=== PATIENT | male | born 1980 | race Hispanic/Latino ===

== ENCOUNTER 2020-01-10 19:32 | Emergency (ER) | payer SELFPAY ==
[2020-01-10] MEDS ORDERED: cefTRIAXone\\ROCEPHIN 250 MG VIAL ONE (20:01)
[2020-01-10] MEDS ORDERED: Azithromycin 250 MG TAB ONE ×2 (20:01→20:03)
[2020-01-10] MEDS ORDERED: Lidocaine 1% PF 5 ML VIAL ONE (20:02)
[2020-01-10 20:21] LABS: #Eosinphils 0.2 thou/uL (0.0-0.7); #Lymphocytes 1.8 thou/uL (1.20-3.40); #Monocytes 0.7 thou/uL (0.11-0.59); #Neutrophils 3.6 thou/uL (1.40-6.50); %Basophils 0.1 % (0.0-1.0); %Eosinophils 2.6 % (0.0-10.0); %Lymphocytes 28.9 % (21.0-51.0); %Monocytes 11.1 % (0.0-10.0); %Neutrophils 57.2 % (42.0-75.0); Hemoglobin 16.4 g/dL (14.0-18.0); Mean Corpuscular HGB CONC 34.1 g/dL (32.0-36.0); Mean Corpuscular Hemoglobin 31.6 pg (27.0-31.0); Mean Corpuscular Volume 92.7 fL (78.0-98.0); Mean Platelet Volume 8.8 fL (7.4-10.4); Platelet Count 180 thou/uL (130-400); RBC Distribution Width 12.5 % (11.5-14.5); Red Blood Cell (RBC) Count 5.18 mill/uL (4.70-6.10); White Blood Cell (WBC) Count 6.2 thou/uL (4.8-10.8)
[2020-01-10 20:41] LABS: ALT (SGPT) 34 U/L (8-55); AST (SGOT) 26 U/L (5-34); Alkaline Phosphatase 68 U/L (40-110); Anion Gap 15 mmol/L (10-20); BUN (Urea Nitrogen) 23 mg/dL (8.9-20.6); Bilirubin, Total 0.4 mg/dL (0.2-1.2); Calc. Creatinine Clearance 0 mL/min (70-130); Calcium 8.9 mg/dL (7.8-10.44); Carbon Dioxide 21 mmol/L (22-29); Chloride 106 mmol/L (98-107); Estimated GFR-MDRD 63; Globulin 4.1 g/dL (2.4-3.5); Glucose 159 mg/dL (70-105); Protein, Total 8.1 g/dL (6.0-8.3); Sodium 138 mmol/L (136-145)
[2020-01-10 20:58] LABS: Bilirubin Negative (Negative); Blood, Urine 3+ (Negative); Clarity Turbid (Clear); Glucose, Urine (Dipstick) 150 mg/dL (Negative); Leukocyte 500 Leu/uL (Negative); Nitrite Negative (Negative); Protein, Urine (Dipstick) 30 mg/dL (Neg-Trace); RBC/HPF Greater than 50 HPF (0-3); Squamous Epithelial None Seen HPF (0-3); Urobilinogen Normal mg/dL (Less than 2); WBC/HPF Greater than 50 HPF (0-3)
[2020-01-10 21:06] LABS: Bacteria/HPF 2+ HPF (None Seen)
[2020-01-12 18:57] LABS: Chlam.trachomatis by PCR,Urine DETECTED (NotDetected)
== END 2020-01-10 21:40 | disposition home or self-care (01) ==
LOC: ERS 19:32
DX: R36.9 Urethral discharge, unspecified (principal); N39.0 Urinary tract infection, site not specified; E11.9 Type 2 diabetes mellitus without complications; I10 Essential (primary) hypertension; Z21 Asymptomatic human immunodeficiency virus [HIV] infection status; F20.9 Schizophrenia, unspecified; F17.210 Nicotine dependence, cigarettes, uncomplicated; K62.5 Hemorrhage of anus and rectum; Z79.84 Long term (current) use of oral hypoglycemic drugs
CPT/HCPCS: 36415; 80053; 81003; 81015; 85025; 87491; 87591; 96372; 99283; J0696; J2001

== ENCOUNTER 2021-02-15 09:11 | Outpatient (CLI) | payer OTHER, SELFPAY | END 2021-02-15 09:12 | disposition home or self-care (01) | LOC: BICRAD 09:11 | PROVIDERS: ATTEND Nurse Practitioner Family | DX: R06.02 Shortness of breath (principal) | CPT/HCPCS: 71046 ==

== ENCOUNTER 2021-07-06 11:06 | Emergency (ER) | payer SELFPAY | END 2021-07-06 12:15 | disposition home or self-care (01) | LOC: ERS 11:06 | DX: D49.2 Neoplasm of unspecified behavior of bone, soft tissue, and skin (principal); E11.9 Type 2 diabetes mellitus without complications; I10 Essential (primary) hypertension; Z21 Asymptomatic human immunodeficiency virus [HIV] infection status; F17.210 Nicotine dependence, cigarettes, uncomplicated; Z79.899 Other long term (current) drug therapy | CPT/HCPCS: 99282 ==

== ENCOUNTER 2022-06-29 08:48 | Inpatient (IN) | payer BC, SELFPAY ==
[~2022-06-29 08:48] MED LIST: Iopamidol-370 76% 500 ML 1 ML ONE
[2022-06-29] MEDS ORDERED: Nitroglycerin 0.4 MG TAB 1 EACH ONE ×2 (09:15→09:17)
[2022-06-29] MEDS ORDERED: Nitroglycerin 2% Ointment 1 INCH/1 GM Packet ONE (09:15)
[2022-06-29] MEDS ORDERED: Aspirin Chewable 81 MG TAB ONE (09:15)
[2022-06-29 09:24] LABS: #Basophils 0.1 thou/uL (0.0-0.2); #Eosinphils 0.2 thou/uL (0.0-0.7); #Lymphocytes 2.2 thou/uL (1.20-3.40); #Monocytes 0.7 thou/uL (0.11-0.59); #Neutrophils 4.2 thou/uL (1.40-6.50); %Basophils 0.8 % (0.0-1.0); %Eosinophils 2.6 % (0.0-10.0); %Lymphocytes 29.9 % (21.0-51.0); %Monocytes 9.1 % (0.0-10.0); %Neutrophils 57.6 % (42.0-75.0); Hemoglobin 17.7 g/dL (14.0-18.0); Mean Corpuscular HGB CONC 34.8 g/dL (32.0-36.0); Mean Platelet Volume 9.8 fL (7.4-10.4); Platelet Count 154 thou/uL (130-400); RBC Distribution Width 11.6 % (11.5-14.5); Red Blood Cell (RBC) Count 5.53 mill/uL (4.70-6.10); White Blood Cell (WBC) Count 7.3 thou/uL (4.8-10.8)
[2022-06-29] MEDS ORDERED: Ondansetron PF 4 MG/2 ML Vial ONE (09:31)
[2022-06-29 09:46] LABS: ALT (SGPT) 51 U/L (8-55); AST (SGOT) 34 U/L (5-34); Alkaline Phosphatase 70 U/L (40-110); Anion Gap 15 mmol/L (10-20); BUN (Urea Nitrogen) 18 mg/dL (8.9-20.6); Bilirubin, Total 0.8 mg/dL (0.2-1.2); Calc. Creatinine Clearance 0 mL/min (70-130); Calcium 9.1 mg/dL (7.8-10.44); Carbon Dioxide 22 mmol/L (22-29); Chloride 102 mmol/L (98-107); Estimated GFR 75; Globulin 3.8 g/dL (2.4-3.5); Glucose 374 mg/dL (70-105); Lipase 111 U/L (8-78); Potassium 4.2 mmol/L (3.5-5.1); Protein, Total 7.8 g/dL (6.0-8.3); Sodium 135 mmol/L (136-145)
[2022-06-29 10:14] LABS: CKMB 8.3 ng/mL (0-6.6)
[2022-06-29] MEDS ORDERED: Acetaminophen 650 MG Suppository PR PRN (11:04)
[2022-06-29] MEDS ORDERED: Dextrose 5% in Water 1,000 ML IV PRN (11:28)
[2022-06-29] MEDS ORDERED: Dextrose 50% Abboject 50 ML SYRINGE SLOW IVP PRN (11:28)
[2022-06-29 12:36] LABS: Troponin I 0.316 ng/mL (< 0.028)
[2022-06-29 12:42] VITALS: BMI 34.7
[2022-06-29] MEDS: Acetaminophen 325 MG TAB PO PRN ×2 (12:52→20:25)
[2022-06-29] MEDS ORDERED: traMADol HCl 50 MG TAB PO SCH (14:15)
[2022-06-29] MEDS ORDERED: Ondansetron ODT 4 MG TAB PO PRN (15:30)
[2022-06-29] MEDS ORDERED: Ondansetron PF 4 MG/2 ML Vial IVP PRN (15:30)
[2022-06-29 16:16] LABS: Troponin I 2.768 ng/mL (< 0.028)
[2022-06-29] MEDS ORDERED: Enoxaparin Sodium 120 MG/0.8 ML SYRINGE SC SCH (16:45)
[2022-06-29] MEDS: Nitroglycerin 2% Ointment 1 INCH/1 GM Packet TOP SCH (17:11)
[2022-06-29] MEDS ORDERED: Ibuprofen 600 MG TAB PO SCH (19:45)
[2022-06-29] MEDS: Metoprolol Tartrate 25 MG TAB PO SCH (20:22)
[2022-06-29] MEDS: Insulin Regular 300 UNITS/3 ML VIAL SC PRN (20:58)
[2022-06-30] MEDS: Nitroglycerin 2% Ointment 1 INCH/1 GM Packet TOP SCH ×3 (02:02→17:21)
[2022-06-30 05:21] LABS: #Eosinphils 0.2 thou/uL (0.0-0.7); #Lymphocytes 1.6 thou/uL (1.20-3.40); #Monocytes 0.5 thou/uL (0.11-0.59); #Neutrophils 3.9 thou/uL (1.40-6.50); %Basophils 0.5 % (0.0-1.0); %Eosinophils 2.7 % (0.0-10.0); %Monocytes 8.4 % (0.0-10.0); %Neutrophils 62.3 % (42.0-75.0); Hemoglobin 16.1 g/dL (14.0-18.0); Mean Corpuscular HGB CONC 33.8 g/dL (32.0-36.0); Mean Corpuscular Hemoglobin 31.5 pg (27.0-31.0); Mean Corpuscular Volume 93.3 fl (78.0-98.0); Mean Platelet Volume 9.9 fL (7.4-10.4); Platelet Count 144 thou/uL (130-400); RBC Distribution Width 11.7 % (11.5-14.5); Red Blood Cell (RBC) Count 5.12 mill/uL (4.70-6.10); White Blood Cell (WBC) Count 6.3 thou/uL (4.8-10.8)
[2022-06-30 05:45] LABS: Anion Gap 13 mmol/L (10-20); BUN (Urea Nitrogen) 20 mg/dL (8.9-20.6); Calc. Creatinine Clearance 173 mL/min (70-130); Calcium 8.5 mg/dL (7.8-10.44); Carbon Dioxide 23 mmol/L (22-29); Cardiac Risk 6.2 (Less than 4.5); Chloride 102 mmol/L (98-107); Cholesterol 161 mg/dl (< 200 Desired); Estimated GFR 98; Glucose 249 mg/dL (70-105); HDL Cholesterol 26 mg/dL (>60 Neg Risk); Potassium 3.7 mmol/L (3.5-5.1); Sodium 134 mmol/L (136-145); Triglycerides 516 mg/dL (Less than 150)
[2022-06-30 06:58] LABS: Magnesium 1.7 mg/dL (1.6-2.6)
[2022-06-30] MEDS ORDERED: Verapamil 5 MG/2 ML VIAL ONE ×2 (08:12→08:14)
[2022-06-30] MEDS ORDERED: Heparin 10,000 UNITS/ 10 ML VIAL ONE (08:13)
[2022-06-30] MEDS ORDERED: Lidocaine 1% PF 5 ML VIAL ONE (08:13)
[2022-06-30] MEDS ORDERED: Nitroglycerin 100MG/250ML BOT 250 ML ONE (08:14)
[2022-06-30] MEDS ORDERED: Fentanyl 100 MCG/2 ML VIAL ONE ×2 (08:15→12:22)
[2022-06-30] MEDS ORDERED: Midazolam HCl 2 mg/2 ml Vial ONE ×2 (08:15→12:22)
[2022-06-30] MEDS ORDERED: Adenosine 6 MG/2 ML VIAL ONE (08:46)
[2022-06-30] MEDS ORDERED: Iopamidol 370 76% 100 ML VIAL ONE (08:47)
[2022-06-30] MEDS ORDERED: FLU VACC QS2022-23(6MOS UP)/PF 60 MCG/0.5 ML SYRINGE IM ONE (09:00)
[2022-06-30] MEDS ORDERED: Prevnar 13-Val Conj/PF 0.5 ML SYRINGE IM ONE (09:00)
[2022-06-30] MEDS ORDERED: Magnesium 2 GM/50 ML(in water) 2 GM in Premix Bag 1 BAG IVPB SCH (10:45)
[2022-06-30] MEDS: Aspirin 81 mg Enteric Coated Tablet PO SCH (11:06)
[2022-06-30] MEDS: glyBURIDE 5 MG TAB PO SCH (11:06)
[2022-06-30] MEDS: Enoxaparin Sodium 120 MG/0.8 ML SYRINGE SC SCH ×2 (11:06→21:35)
[2022-06-30] MEDS: Metoprolol Tartrate 25 MG TAB PO SCH ×2 (11:07→21:35)
[2022-06-30] MEDS ORDERED: Nitroglycerin 0.4 MG TAB (25 Tab Bottle) SL PRN (13:41)
[2022-06-30] MEDS ORDERED: Sodium Chloride 0.9% 200 ML IV PRN (13:41)
[2022-06-30] MEDS ORDERED: Acetaminophen/Codeine 30-300mg Tablet PO PRN ×2 (13:41)
[2022-06-30] MEDS ORDERED: Sodium Chloride 0.9% 1,000 ML IV SCH (13:45)
[2022-06-30] MEDS: Insulin Regular 300 UNITS/3 ML VIAL SC PRN ×2 (16:35→23:19)
[2022-06-30] MEDS: Acetaminophen 325 MG TAB PO PRN (18:54)
[2022-06-30] MEDS ORDERED: Atorvastatin Calcium 40 MG TAB PO SCH (21:00)
[2022-06-30] MEDS: [UNRECOGNIZED DRUG - OTHER] PO SCH (22:47)
[2022-07-01] MEDS: Nitroglycerin 2% Ointment 1 INCH/1 GM Packet TOP SCH ×3 (02:26→18:00)
[2022-07-01] MEDS: Insulin Regular 300 UNITS/3 ML VIAL SC PRN ×2 (05:23→12:30)
[2022-07-01] MEDS ORDERED: Losartan 25 MG TAB PO SCH (09:00)
[2022-07-01] MEDS: Metoprolol Tartrate 25 MG TAB PO SCH (09:43)
[2022-07-01] MEDS: glyBURIDE 5 MG TAB PO SCH (09:43)
[2022-07-01] MEDS: Aspirin 81 mg Enteric Coated Tablet PO SCH (09:44)
[2022-07-01] MEDS: [UNRECOGNIZED DRUG - OTHER] PO SCH (09:44)
[2022-07-02 02:39] VITALS: BP 125/82
[2022-07-02 02:41] VITALS: TEMP 98.4
[2022-07-02] MEDS ORDERED: Clopidogrel Bisulfate 75 MG TAB PO SCH (09:00)
== END 2022-07-01 19:16 | disposition home or self-care (01) | DRG 281 ==
LOC: ERS 08:48 → 2SW 10:55 → OBSVTOIN 06-30 11:28
PROVIDERS: ADMIT Internal Medicine; ATTEND Internal Medicine
PROC: 4A023N7 Measurement of Cardiac Sampling and Pressure, Left Heart, Percutaneous Approach (ICD-10-PCS; principal; 2022-06-30)
PROC: B2111ZZ Fluoroscopy of Multiple Coronary Arteries using Low Osmolar Contrast (ICD-10-PCS; 2022-06-30)
PROC: B2151ZZ Fluoroscopy of Left Heart using Low Osmolar Contrast (ICD-10-PCS; 2022-06-30)
DX: I21.4 Non-ST elevation (NSTEMI) myocardial infarction (principal); I42.8 Other cardiomyopathies; Z20.822 Contact with and (suspected) exposure to COVID-19; I25.110 Atherosclerotic heart disease of native coronary artery with unstable angina pectoris; E11.9 Type 2 diabetes mellitus without complications; E78.5 Hyperlipidemia, unspecified; I10 Essential (primary) hypertension; F17.210 Nicotine dependence, cigarettes, uncomplicated; F10.10 Alcohol abuse, uncomplicated; Z21 Asymptomatic human immunodeficiency virus [HIV] infection status; Z28.21 Immunization not carried out because of patient refusal; Z79.899 Other long term (current) drug therapy; Z79.84 Long term (current) use of oral hypoglycemic drugs; Z82.3 Family history of stroke; Z71.6 Tobacco abuse counseling; Z82.49 Family history of ischemic heart disease and other diseases of the circulatory system
CPT/HCPCS: 36415; 36416; 71045; 71275; 80048; 80053; 80061; 82553; 83690; 83735; 84484; 85025; 93005; 93306; 93458; 93798; 96372; 96374; 96375; 97139; 99152; C1769; C1894; G0378; J0153; J1644; J1650; J1815; J2250; J2405; J3010; J3475; J7050; Q9967; U0003; U0005